=== PATIENT | female | born 1955 | race Caucasian/White ===

== ENCOUNTER → 2018-12-14 | Day surgery (SDC) | payer OTHER ==
[~2018-12-14] MED LIST: ADDERALL 30 MG30 MG PO; ADDERALL PO; BENEFIBER240 GM PO; BENTYL10 MG PO; DEXILANT60 MG PO; DEXLANSOPRAZOLE PO; FENTANYL CITRATE/PF 100MCG/2 ML INJ ONE; MIDAZOLAM HCL 2 MG/2 ML VIAL ONE; PROPOFOL IV EMULSION 10 MG/ML 20 ML VIAL ONE; SEROQUEL25 MG PO; ZOFRAN ODT4 MG PO
[2018-12-14 14:00] VITALS: BP 120/76
--- NOTE | 2018-12-14 15:31 | Operative Report ---
DATE OF PROCEDURE: 12/14/2018 SURGEON: Jostin Monsivais MD PROCEDURE: Esophagogastroduodenoscopy with biopsies. INDICATIONS FOR EGD: History of Pena esophagus. MEDICATIONS: The patient was done under MAC, please see anesthesiologist's note. PROCEDURE IN DETAIL: With the patient in left lateral decubitus position, flexible fiberoptic Olympus gastroscope was introduced into the esophagus under direct visualization without any difficulty. There was some patchy erythema noted in distal esophagus. Minute tongues of velvety red mucosa were noted to extend proximally from the GE junction and biopsies were obtained. The scope was then advanced with ease into the stomach traversing a small sliding hiatal hernia. Mucosa overlying the antrum and the body revealed some patchy erythema and [id number] edema and biopsies were obtained and sent to stain for H pylori. An approximately 4 mm polyp was noted in the mid body along the greater curvature and that was partially excised with the cold biopsy forceps. Additional minute polyp was also removed per the cold biopsy forceps. Pylorus appeared to be of normal contour and shape, it was intubated with ease and the scope was advanced all the way to the second portion of the duodenum. The scope was then withdrawn slowly and mucosa overlying the second portion and the duodenal bulb grossly appeared to be within normal limits. Biopsies were obtained to rule out sprue. The scope was then withdrawn back into the stomach and retroflexed and mucosa overlying the fundus and the cardia appeared to be within normal limits. The scope was then straightened out, it was subsequently withdrawn. The patient tolerated procedure well. IMPRESSION: 1. Pena esophagus, biopsies obtained. 2. Small sliding hiatal hernia. 3. Gastritis, biopsied, biopsies sent to stain for H pylori. 4. Gastric polyp approximately 4 mm in midbody greater curvature, partially excised with the cold biopsy forceps. 5. Rule out sprue. PLAN: Follow up histology. Continue Dexilant 60 mg one p.o. a.c. b.i.d. Jostin Monsivais MD [facility] [place] /[id number]
== END | disposition home or self-care (01) ==
LOC: OR 10:52
PROVIDERS: ATTEND Internal Medicine Gastroenterology
DX: K21.0 Gastro-esophageal reflux disease with esophagitis (principal); K22.70 Barrett's esophagus without dysplasia; Z88.0 Allergy status to penicillin; F98.8 Other specified behavioral and emotional disorders with onset usually occurring in childhood and adolescence; Z68.26 Body mass index [BMI] 26.0-26.9, adult; K44.9 Diaphragmatic hernia without obstruction or gangrene; K29.70 Gastritis, unspecified, without bleeding; K31.7 Polyp of stomach and duodenum; Z01.810 Encounter for preprocedural cardiovascular examination
CPT/HCPCS: 43239; 93005; J2250; J2704